=== PATIENT | female | born 1980 | race Caucasian/White ===

== ENCOUNTER 2016-10-22 18:55 | Emergency (ER) | payer BC ==
[2016-10-22 19:01] VITALS: BP 138/102; PULSE 81; RESP 20; TEMP 98.3; O2SAT 98
[2016-10-22 19:20] VITALS: BP 142/81; PULSE 79; RESP 18; O2SAT 98
[2016-10-22 19:30] VITALS: BP 138/78; PULSE 72; RESP 18; O2SAT 99
[2016-10-22 20:00] VITALS: BP 121/61; PULSE 70; RESP 18; O2SAT 96
[2016-10-22] MEDS ORDERED: PRIL20CA9 PO (20:03)
--- NOTE | 2016-10-22 20:04 | PD ---
HPI Chief Complaint: Chest Pain Time Seen by Provider: 19:57 Travel History International Travel<30 days: No Contact w/Intl Traveler<30days: No Traveled to known affect area: No History of Present Illness HPI The patient is a 36-year-old female that complains of a slight burning, crampy, indigestion pain beginning at 5:30 PM today the pain is now resolved. She did take a 150 mg ranitidine tablet when she first felt the pain. The patient states she has been belching a lot and sometimes the pain is relieved by belching. She has no history of heart disease but her mother had coronary artery bypasses 5. The patient is a smoker. The patient states she has a history of GERD, she was told this by her doctor. PFS Past Medical History Medical other: Yes (Indigestion) Tetanus Vaccination: < 5 Years Influenza Vaccination: No ?: Unknown LMP: Two weeks ago : 0 Past Surgical History Other Surgery: Yes ([place] teeth ) Social History Alcohol Use: Yes (Occasional) Tobacco Use: Yes (/ ppd) Substance Use: No Allergies-Medications (Allergen,Severity, Reaction): Coded Allergies: No Known Allergies (Unverified , 10/22/16) Review of Systems Except as stated in HPI: all other systems reviewed are Neg Physical Exam Narrative GENERAL: The patient is alert, oriented 3 in no apparent distress. She is obese. Her vital signs initially 1 138/102 and now are normal, the pressure is reduced to 138/74. SKIN: Focused skin assessment warm/dry. HEAD: Atraumatic. Normocephalic. EYES: Pupils equal and round. No scleral icterus. No injection or drainage. ENT: No nasal bleeding or discharge. Mucous membranes pink and moist. NECK: Trachea midline. No JVD. CARDIOVASCULAR: Regular rate and rhythm. No murmur appreciated. RESPIRATORY: No accessory muscle use. Clear to auscultation. Breath sounds equal bilaterally. GASTROINTESTINAL: Abdomen soft, with minimal discomfort over the midline epigastrium to direct palpation, nondistended. Hepatic and splenic margins not palpable. No guarding or rebound is present. The pain is completely reproduced by pressing on the midline epigastrium. MUSCULOSKELETAL: No obvious deformities. No clubbing. No cyanosis. No edema. NEUROLOGICAL: Awake and alert. No obvious cranial nerve deficits. Motor grossly within normal limits. Normal speech. PSYCHIATRIC: Appropriate mood and affect; insight and judgment normal. Data Data Last Documented VS Vital Signs Date Time Temp Pulse Resp B/P Pulse Ox O2 Delivery O2 Flow Rate FiO2 10/22/16 19:01 98.3 81 20 138/102 98 MDM Medical Decision Making Medical Screen Exam Complete: Yes Emergency Medical Condition: Yes Medical Record Reviewed: Yes Interpretation(s) The EKG is normal with normal sinus rhythm rate of 78. Differential Diagnosis GERD, ulcer pain, acute coronary syndromehighly unlikely, pancreatitishighly unlikely Narrative Course The patient appears to have GERD. The ranitidine she took at 5:30 PM tonight as well as the elevation of her head and avoidance of belching appears to have resolved this problem. Plan: The patient should continue to take her ranitidine and is given prescription for Prilosec and she should take liquid Maalox/Mylanta. She should continue to elevate her head of the bed and discontinue smoking. Diagnosis Primary Impression: GERD (gastroesophageal reflux disease) Additional Instructions: As we discussed, elevate the head of your bed, discontinue smoking, take the Prilosec one tablet daily and continue to take the ranitidine and take Maalox as well if you get a recurrence of this discomfort. Follow-up with your primary care physician next week. Med/Other Pt SpecificInfo: Prescription(s) given Scripts Omeprazole (Prilosec)20 Mg Cap20 Mg PO DAILY #30 CAP Ref 0 Prov:Keith Chahal MD 10/22/16 Disposition: 01 DISCHARGE HOME Condition: Stable Keith Chahal MD Oct 22, 2016 20:04
[2016-10-22 20:30] VITALS: BP 129/77; PULSE 64; RESP 18; O2SAT 97
--- NOTE | 2016-10-23 13:40 | EKG ---
Date Performed: 10/22/2016 Time Performed: 19:15:52 PTAGE: 36 years EKG: Sinus rhythm Normal ECG NO PREVIOUS TRACING DOCTOR: Cristian Boone Interpretating Date/Time 10/23/2016 13:34:06
== END 2016-10-22 21:04 | disposition home or self-care (01) ==
LOC: PHED 18:55
DX: K21.9 Gastro-esophageal reflux disease without esophagitis (principal); F17.210 Nicotine dependence, cigarettes, uncomplicated
CPT/HCPCS: 93005

== ENCOUNTER 2017-12-13 20:40 | Observation (INO) | payer BC, OTHER ==
[~2017-12-13 20:40] MED LIST: ACETAMINOPHEN 500 MG CPLT PO PRN; ACETAMINOPHEN/HYDROcodone 325 MG/7.5 MG TAB PO PRN; MEDR4PAK PO; MORPHINE SULFATE 4 MG/ML INJ IV PUSH PRN; NITROGLYCERIN 0.4 MG SL 25 TABS/BTL SL PRN; OMEP20TA93 PO; PAXI20TA26 PO; PRIL20CA9 PO; SODIUM CHLORIDE 0.9% FLUSH 10 ML FLUSH IV FLUSH PRN; VENTAER INH; ZITHTAB PO
[2017-12-13] MEDS ORDERED: FAMOTIDINE 20 MG TAB PO SCH (21:00)
[2017-12-13] MEDS: SODIUM CHLORIDE 0.9% FLUSH 10 ML FLUSH IV FLUSH SCH (21:00)
[2017-12-13 22:00] LABS: TROPONIN I LESS THAN 0.02 NG/ML (0.02-0.05)
--- NOTE | 2017-12-13 22:29 | HHI.HP ---
HPI Service [facility] Primary Care Physician Steve Avilez MD Admission Diagnosis Atypical chest pain, cardiomegaly . Diagnoses: (1) Cardiomegaly (2) Atypical chest pain (3) Anxiety Chief Complaint: jaw pain, shortness of breath, diaphoresis Travel History International Travel<30 Days: No Contact w/Intl Traveler <30 Da: No History of Present Illness Ms. Segura is a 37 y/o female with a history of severe anxiety, viral meningitis one year ago, and GERD who presented to the ER in [place] complaining of shortness of breath, diaphoresis, and bilateral jaw pain. She was transferred to [facility] for evaluation of cardiomegaly and atypical chest pain under the [facility] service. The patient is seen after transfer in the CDU. She became increasing anxious throughout my visit. She states that she was diagnosed with bronchitis one week ago and was placed on steroids and an albuterol inhaler for this. Since starting these medications, she's been experiencing "panic attacks" on a daily basis. However, today, she states that she felt like she was "having a heart attack" after she started to experience anxiety prior to a chiropractor appointment. She felt short of breath, cold across her chest, nauseated, diaphoretic, and had bilateral jaw pain. The symptoms resolved in [place] but she reported that symptoms were restarting during my visit. 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 Her mother is a hospice patient. She reports a chronic "pinched nerve" in the right scapular area with numbness of her bilateral arms and left upper thigh. Review of Systems Except as stated in HPI: all other systems reviewed are Neg Past Family Social History Past Medical History GERD Anxiety Meningitis one year ago . Past Surgical History Denies any history of surgeries . Reported Medications Reported Meds & Active Scripts Active Ventolin Hfa 18 GM Inh (Albuterol Sulfate) 90 Mcg/Act Aer 2 Puff INH Q4H PRN Reported Omeprazole 20 Mg Tab 20 Mg PO DAILY Paxil (Paroxetine HCl) 20 Mg Tablet 20 Mg PO DAILY . Allergies: Coded Allergies: No Known Allergies (Unverified Allergy, Unknown, 12/13/17) Family History Mother age 57; first CABG age 51; DM, seizures, sepsis - on hospice Grandmother with CAD/stents . 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 Physical Exam Physical Exam GENERAL: This is a morbidly obese female patient, in no apparent distress. SKIN: No rashes, ecchymoses or lesions. Cool and dry. HEAD: Atraumatic. Normocephalic. No temporal or scalp tenderness. EYES: No scleral icterus. No injection or drainage. ENT: Nose without bleeding, purulent drainage. Uvula midline. NECK: Trachea midline. No JVD. CARDIOVASCULAR: Regular rate and rhythm without murmurs, gallops, or rubs. RESPIRATORY: Clear to auscultation. Breath sounds equal bilaterally. No wheezes , rales, or rhonchi. GASTROINTESTINAL: Abdomen soft, non-tender, nondistended. No hepato-splenomegaly , or palpable masses. No guarding. MUSCULOSKELETAL: Extremities without clubbing, cyanosis, or edema. No calf tenderness. NEUROLOGICAL: Awake and alert. Motor and sensory grossly within normal limits. Normal speech. PSYCHIATRIC: patient increasingly anxious throughout visit. Laboratory Laboratory Tests Test 12/13/17 14:23 White Blood Count 8.0 TH/MM3 Red Blood Count 4.84 MIL/MM3 Hemoglobin 14.6 GM/DL Hematocrit 43.1 % Mean Corpuscular Volume 89.0 FL Mean Corpuscular Hemoglobin 30.2 PG Mean Corpuscular Hemoglobin Concent 33.9 % Red Cell Distribution Width 12.5 % Platelet Count 239 TH/MM3 Mean Platelet Volume 11.2 FL Immature Granulocyte % (Auto) 0.2 % Neutrophils (%) (Auto) 64.2 % Lymphocytes (%) (Auto) 27.8 % Monocytes (%) (Auto) 4.9 % Eosinophils (%) (Auto) 1.9 % Basophils (%) (Auto) 1.0 % Immature Granulocyte # (Auto) 0.0 TH/MM3 Neutrophils # (Auto) 5.2 TH/MM3 Lymphocytes # (Auto) 2.2 TH/MM3 Monocytes # (Auto) 0.4 TH/MM3 Eosinophils # (Auto) 0.2 TH/MM3 Basophils # (Auto) 0.1 TH/MM3 CBC Comment DIFF FINAL Differential Comment Prothrombin Time 9.4 SEC Prothromb Time International Ratio 0.9 RATIO Activated Partial Thromboplast Time 24.5 SEC D-Dimer Quantitative (PE/DVT) 0.40 MG/L FEU Blood Urea Nitrogen 13 MG/DL Creatinine 0.90 MG/DL Random Glucose 108 MG/DL Calcium Level 9.0 MG/DL Magnesium Level 2.0 MG/DL Sodium Level 141 MEQ/L Potassium Level 3.7 MEQ/L Chloride Level 107 MEQ/L Carbon Dioxide Level 26.0 MEQ/L Anion Gap 8 MEQ/L Estimat Glomerular Filtration Rate 70 ML/MIN Total Creatine Kinase 317 U/L Creatine Kinase MB 2.9 NG/ML Creatine Kinase MB % 0.9 % Troponin I LESS THAN 0.02 NG/ML Human Chorionic Gonadotropin, Quant LESS THAN 1 MIU/ML Laboratory Tests Test 12/13/17 21:15 Total Creatine Kinase 73 Troponin I LESS THAN 0.02 Imaging Last Impressions Chest X-Ray 12/13/17 1416 Signed Impressions: CONCLUSION: 1. Minimal increased perihilar interstitial infiltrates are noted suggesting m inimal central pulmonary vascular congestion or viral pneumonitis. Clinical cor relation is recommended. 2. Mild cardiomegaly. . Caprini VTE Risk Assessment Caprini VTE Risk Assessment: No/Low Risk (score <= 1) Caprini Risk Assessment Model Point Value = 1 Point Value = 2 Point Value = 3 Point Value = 5 Age 41-60 Minor surgery BMI > 25 kg/m2 Swollen legs Varicose veins or History of unexplained or recurrent spontaneous Oral contraceptives or hormone replacement Sepsis (< 1 month) Serious lung disease, including pneumonia (< 1 month) Abnormal pulmonary function Acute myocardial infarction Congestive heart failure (< 1 month) History of inflammatory bowel disease Medical patient at bed rest Age 61-74 Arthroscopic surgery Major open surgery (> 45 min) Laparoscopic surgery (> 45 min) Malignancy Confined to bed (> 72 hours) Immobilizing plaster cast Central venous access Age >= 75 History of VTE Family history of VTE Factor V Leiden Prothrombin [id number] Lupus anticoagulant Anticardiolipin antibodies Elevated serum homocysteine Heparin-induced thrombocytopenia Other congenital or acquired thrombophilia Stroke (< 1 month) Elective arthroplasty Hip, pelvis, or leg fracture Acute spinal cord injury (< 1 month) Prophylaxis Regimen Total Risk Factor Score Risk Level Prophylaxis Regimen 0-1 Low Early ambulation 2 Moderate Order ONE of the following: *Sequential Compression Device (SCD) *Heparin 5000 units SQ BID 3-4 Higher Order ONE of the following medications: *Heparin 5000 units SQ TID *Enoxaparin/Lovenox 40 mg SQ daily (WT < 150 kg, CrCl > 30 mL/min) *Enoxaparin/Lovenox 30 mg SQ daily (WT < 150 kg, CrCl > 10-29 mL/min) *Enoxaparin/Lovenox 30 mg SQ BID (WT < 150 kg, CrCl > 30 mL/min) AND/OR *Sequential Compression Device (SCD) 5 or more Highest Order ONE of the following medications: *Heparin 5000 units SQ TID (Preferred with Epidurals) *Enoxaparin/Lovenox 40 mg SQ daily (WT < 150 kg, CrCl > 30 mL/min) *Enoxaparin/Lovenox 30 mg SQ daily (WT < 150 kg, CrCl > 10-29 mL/min) *Enoxaparin/Lovenox 30 mg SQ BID (WT < 150 kg, CrCl > 30 mL/min) AND *Sequential Compression Device (SCD) Assessment and Plan Problem List: (1) Cardiomegaly ICD Code: I51.7 - Cardiomegaly (2) Atypical chest pain ICD Code: R07.89 - Other chest pain (3) Anxiety ICD Code: F41.9 - Anxiety disorder, unspecified Assessment and Plan Ms. Segura is a 37 y/o female with a history of viral meningitis one year ago, GERD, and anxiety who presented to the ER in [place] complaining of shortness of breath, diaphoresis, and bilateral jaw pain. She was transferred to [facility] main campus for evaluation of cardiomegaly and atypical chest pain under the [facility] service. Atypical chest pain - Serial EKGs and cardiac enzymes to r/o ACS - Nitroglycerin 0.4 mg sl q5min up to 3 doses for CP - Bryant/Morphine PRN for pain - consider stress testing pending outcome of initial testing Cardiomegaly - cardiomegaly on CXR (personally reviewed) - lung sounds clear on exam; no signs of fluid overload - will check echocardiogram to evaluate cardiac structure and function Anxiety - continue home Paxil - will give low dose Xanax tonight to try to reduce patient's anxiety and allow for restorative sleep Right scapular pain with bilateral arm numbness and left upper outer thigh numbness - no neuro deficits on exam - discussed obtaining an spinal MRI but patient refusing at this time - symptoms present over the past 3 months and this can likely be followed up as an outpatient - will continue to monitor DVT prophylaxis - early ambulation Discussed Condition With RN and Dr. David . Katie Florian Dec 13, 2017 22:29
[2017-12-13] MEDS ORDERED: ALPRAZolam 0.25 MG TAB PO ONE (22:30)
[2017-12-14] VITALS (7 sets, daily range): BP systolic 123–128; BP diastolic 64–96; PULSE 71–83; RESP 16–18; TEMP 97.6–98.4; O2SAT 95–98
[2017-12-14 02:39] LABS: TROPONIN I LESS THAN 0.02 NG/ML (0.02-0.05)
--- NOTE | 2017-12-14 08:40 | HHI.PR ---
Subjective Remarks Follow-up for multiple vague complaints of atypical chest pain, diaphoresis, anxiety, nausea. The patient admits that she has been very stressed out recently and her anxiety "got really bad" yesterday. 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 Today she states she does feel a lot better. She denies any specific chest pains, however does report some epigastric fullness and feels "gassy". She states she keeps burping a lot. Denies any nausea or vomiting today. Denies any shortness of breath. Patient states she is a hypochondriac, and yesterday she started researching her symptoms which made her anxiety worse. She has no other medical complaints to report at this time. Objective Vitals Vital Signs Date Time Temp Pulse Resp B/P (MAP) Pulse Ox O2 Delivery O2 Flow Rate FiO2 12/14/17 08:07 98.0 71 18 123/64 (83) 95 12/14/17 04:41 97.6 72 16 127/96 (106) 98 12/14/17 00:22 98.4 72 17 128/83 (98) 96 12/13/17 23:18 21 I/O 12/13/17 12/13/17 12/13/17 12/14/17 12/14/17 12/14/17 07:00 15:00 23:00 07:00 15:00 23:00 Intake Total 300 ml 200 ml Balance 300 ml 200 ml Intake Oral 300 ml 200 ml Imaging Last Impressions Gall Bladder Ultrasound 12/14/17 0000 Signed Impressions: CONCLUSION: 1. Gallbladder sludge and cholelithiasis. 2. Abnormal hepatic echotexture characteristic of steatosis or diffuse hepatoc ellular disease. 3. No evidence of acute process. Objective Remarks GENERAL: Well-nourished, well-developed pleasant obese female patient in NAD. SKIN: Warm and dry. No rash. HEENT: Normocephalic. Atraumatic. Pupils equal and round. Mucous membranes pink and moist. NECK: Supple. Trachea midline. CARDIOVASCULAR: Regular rate and rhythm. No murmur appreciated. RESPIRATORY: No accessory muscle use. Clear to auscultation. Breath sounds equal bilaterally. GASTROINTESTINAL: Abdomen soft, non-tender, nondistended. Normoactive bowel sounds x4. MUSCULOSKELETAL: No obvious deformities. Extremities without clubbing, cyanosis , or edema. NEUROLOGICAL: Awake and alert. No obvious cranial nerve deficits. Motor grossly within normal limits. Moving all extremities spontaneously. Normal speech. PSYCHIATRIC: Appropriate mood and affect; insight and judgment normal. Medications and IVs Current Medications Medications (Trade) Dose Ordered Sig/George Route Start Time Stop Time Status Last Admin (NS Flush) 2 ml BID IV FLUSH 12/13/17 21:00 12/14/17 09:17 (NS Flush) 2 ml UNSCH PRN IV FLUSH 12/13/17 19:45 (Aspirin) 325 mg DAILY PO 12/14/17 09:00 12/14/17 09:16 (Nitrostat Sl) 0.4 mg Q5M PRN SL 12/13/17 19:45 (Tylenol) 500 mg Q4H PRN PO 12/13/17 19:45 ([place] 7.5-325 Mg) 1 tab Q4H PRN PO 12/13/17 19:45 (Morphine Inj) 2 mg Q3H PRN IV PUSH 12/13/17 19:45 (Paxil) 20 mg DAILY PO 12/14/17 09:00 12/14/17 09:16 (Protonix) 40 mg DAILY PO 12/14/17 09:00 12/14/17 09:17 A/P Problem List: (1) Cardiomegaly ICD Code: I51.7 - Cardiomegaly (2) Atypical chest pain ICD Code: R07.89 - Other chest pain (3) Anxiety ICD Code: F41.9 - Anxiety disorder, unspecified Assessment and Plan 37 y/o female with a history of viral meningitis 1 year ago, GERD, and anxiety who presented to the ER in [place] complaining of shortness of breath, diaphoresis, and bilateral jaw pain. She was transferred to [facility] main campus for evaluation of cardiomegaly and atypical chest pain. Atypical chest pain: Strongly suspect symptoms secondary to anxiety attack vs GI related, however rule out ACS. Patient with history of tobacco use, and has family history of heart disease in their 50s-60s. -ACS ruled out with negative serial cardiac enzymes 3 -EKG reviewed, shows nonspecific T-wave inversions in V1-3, otherwise no acute ST elevation/depression -Continue aspirin, nitro prn, morphine prn -Walking treadmill test unremarkable with no ischemia -Symptoms resolved with resolution of anxiety attack -Also possibly GI related, check GB U/S and started on PPI -1400hrs: GB U/S with cholelithiasis and sludge; LFTs wnl; patient informed of results, will f/up as outpatient with general surgery if symptoms return; also instructed to return to ED if symptoms persist/worsen Cardiomegaly -cardiomegaly seen on CXR (personally reviewed) -BNP < 2 -lung sounds clear on exam; no signs of fluid overload -echocardiogram reviewed, shows grade 1 diastolic dysfunction but otherwise unremarkable; discussed results with the patient Anxiety: with acute anxiety attack -continue home Paxil -given small dose of xanax with improvement of symptoms -outpatient follow up with PCP/psychiatry Right scapular pain: with bilateral arm numbness and left upper outer thigh numbness -no neuro deficits on exam -recommended outpatient MRI and follow up with orthopedics; patient already follows with chiropractor for adjustments -symptoms improved, at baseline Hyperlipidemia: LDL 117 -discussed results with the patient, she would like to trial diet/exercise prior to starting on statin -repeat lipid panel as outpatient in 3 months DVT prophylaxis- early ambulation Discharge Planning Discharge patient to home Condition on discharge: Improved Heart Healthy Diet as tolerated Ad Beth activity Rx written: protonix 40mg daily Follow-up with primary care physician at [facility] Repeat Lipid Panel in 3months Homa Morris PA-C Dec 14, 2017 8:40 am
[2017-12-14] MEDS ORDERED: RESP: ALBUTEROL 1.25 MG/3 ML NEB (SCH) NEB ONE (08:45)
[2017-12-14 08:47] LABS: CHOLESTEROL/ HDL RATIO 5.07 RATIO; HDL CHOLESTEROL 34.3 MG/DL (40.0-60.0)
[2017-12-14] MEDS ORDERED: PANTOPRAZOLE SOD 40 MG DELAYED RELEASE TAB PO SCH (09:00)
[2017-12-14] MEDS ORDERED: PANTOPRAZOLE SOD 20 MG DELAYED RELEASE TAB PO SCH (09:00)
[2017-12-14] MEDS ORDERED: PARoxetine HCL 20 MG TAB PO SCH (09:00)
[2017-12-14] MEDS ORDERED: ASPIRIN 325 MG TAB PO SCH (09:00)
[2017-12-14] MEDS: SODIUM CHLORIDE 0.9% FLUSH 10 ML FLUSH IV FLUSH SCH (09:17)
[2017-12-14 09:19] LABS: ALBUMIN 3.5 GM/DL (3.4-5.0); DIRECT BILIRUBIN ADULT 0.1 MG/DL (0.0-0.2)
[2017-12-14 09:20] LABS: INDIRECT BILIRUBIN 0.5 MG/DL (0.0-0.8); TOTAL BILIRUBIN ADULT 0.6 MG/DL (0.2-1.0); TOTAL PROTEIN 6.6 GM/DL (6.4-8.2)
--- NOTE | 2017-12-14 11:50 | RADRPT ---
EXAM DATE: 12/14/2017 9:26 AM EDT AGE/SEX: 37 years / Female INDICATIONS: Right upper quadrant pain. CLINICAL DATA: This is the patient's initial encounter. Patient reports that signs and/or symptoms h ave been present for 1 day and indicates a pain score of 2/10. MEDICAL/SURGICAL HISTORY: Hypertension. Gastroesophageal reflux disease. Cardiomegaly. Bronchitis. Anxiety. Psoriasis. None. COMPARISON: No prior exams available for comparison. MEASUREMENTS (cm x cm x cm): Liver:__ 15.6 cm length Common Bile Duct:__ 4mm FINDINGS: Liver: Increased echotexture without focal lesion or ductal dilation. Portal Vein: Hepatopedal flow seen in portal vein. Common Duct: No intraluminal mass or stone visualized. Gallbladder: Small noncalcified stones and sludge are identified in the gallbladder. There is no sabrina dence of wall thickening or pericholecystic fluid. Pancreas: The visualized portions are within normal limits Right Kidney: No mass or hydronephrosis Other: None. CONCLUSION: 1. Gallbladder sludge and cholelithiasis. 2. Abnormal hepatic echotexture characteristic of steatosis or diffuse hepatocellular disease. 3. No evidence of acute process. Electronically signed by: Mark Anthony Raya MD 12/14/2017 11:49 AM EDT
--- NOTE | 2017-12-14 12:19 | TR ---
Date Performed: 12/14/2017 Time Performed: 10:14:44 DOCTOR: Anaid House DRUG LIST: CLINICAL HISTORY: REASON FOR TEST: REASON FOR ENDING: OBSERVATION: CONCLUSION: DONNA PROTOCOL. THE CHEST DISCONFORT DID NOT WORSEN. TEST STOPPED AFTER EXCEEDING GO AL HR SECONDARY TO SOB AND LEG FATIGUE.Maximum MF=002 % Max HR Achieved=89.0% Maximum RK=114/80 Total Exercise Time=6:00 COMMENTS: No ischemia
[2017-12-14] MEDS ORDERED: PANT40TA3 PO (13:51)
--- NOTE | 2017-12-14 15:42 | ECHRPT ---
Indication: HEART FAILURE CONCLUSIONS The left ventricular systolic function is normal with an estimated ejection fraction in the range of 55-60%. Probable impaired left ventricular relaxtion (grade 1 diastolic dysfunction). There is trace tricuspid valve regurgitation. BP: / HR: Rhythm: MEASUREMENTS (Male / Female) Normal Values Technical Quality: 2D ECHO LV Diastolic Diameter PLAX 4.9 cm 4.2 - 5.9 / 3.9 - 5.3 cm LV Systolic Diameter PLAX 3.4 cm IVS Diastolic Thickness 1.0 cm 0.6 - 1.0 / 0.6 - 0.9 cm LVPW Diastolic Thickness 0.8 cm 0.6 - 1.0 / 0.6 - 0.9 cm LV Relative Wall Thickness 0.4 RV Internal Dim ED PLAX 2.1 cm DOPPLER Mitral E Point Velocity 52.1 cm/s Mitral A Point Velocity 79.5 cm/s Mitral E to A Ratio 0.7 TR Peak Velocity 167.0 cm/s TR Peak Gradient 11.2 mmHg Right Atrial Pressure 5.0 mmHg Pulmonary Artery Systolic Pressu 16.2 mmHg Right Ventricular Systolic Press 16.2 mmHg FINDINGS LEFT VENTRICLE Normal left ventricular size. Wall thickness is normal. The left ventricular systolic function is normal with an estimated ejection fraction in the range of 55-60%. Probable impaired left ventricular relaxtion (grade 1 diastolic dysfunction). RIGHT VENTRICLE Normal right ventricular size and systolic function. LEFT ATRIUM The left atrial size is normal. RIGHT ATRIUM The right atrial size is normal. ATRIAL SEPTUM Normal atrial septal thickness AORTA The aortic root and proximal ascending aorta are normal in size on limited imaging. MITRAL VALVE Structurally normal mitral valve. No mitral valve stenosis or regurgitation. AORTIC VALVE Probable trileaflet aortic valve. No aortic valve stenosis or regurgitation. TRICUSPID VALVE Structurally normal tricuspid valve. No tricuspid valve stenosis. There is trace tricuspid valve regurgitation. PULMONARY VALVE No pulmonary valve regurgitation or stenosis. VESSELS The inferior vena cava is normal in size. PERICARDIUM No pericardial effusion. Loc Gonzalez DO (Electronically Signed) Final Date:14 December 2017 15:41
--- NOTE | 2017-12-14 18:24 | EKG ---
Date Performed: 12/13/2017 Time Performed: 21:15:27 PTAGE: 37 years EKG: Sinus rhythm NORMAL ECG PREVIOUS TRACING : 12/13/17 @ 14.19 Since the previous tracing, no significant change noted DOCTOR: Anaid House Interpretating Date/Time 12/14/2017 18:23:29
--- NOTE | 2017-12-14 18:24 | EKG ---
Date Performed: 12/14/2017 Time Performed: 01:50:18 PTAGE: 37 years EKG: Sinus rhythm NORMAL ECG PREVIOUS TRACING : 12/13/2017 21.15 Since the previous tracing, no significant change noted DOCTOR: Anaid House Interpretating Date/Time 12/14/2017 18:23:44
== END 2017-12-14 17:35 | disposition home or self-care (01) ==
LOC: NEDDLT 20:40 → NEPHCDU 20:50
PROVIDERS: ADMIT Internal Medicine; ATTEND Internal Medicine
DX: R07.89 Other chest pain (principal); I51.7 Cardiomegaly; F41.1 Generalized anxiety disorder; F41.0 Panic disorder [episodic paroxysmal anxiety]; E78.5 Hyperlipidemia, unspecified; F45.21 Hypochondriasis; G58.9 Mononeuropathy, unspecified; K21.9 Gastro-esophageal reflux disease without esophagitis; K80.20 Calculus of gallbladder without cholecystitis without obstruction; F17.210 Nicotine dependence, cigarettes, uncomplicated; Z79.899 Other long term (current) drug therapy; Z86.61 Personal history of infections of the central nervous system; Z87.09 Personal history of other diseases of the respiratory system; Z83.3 Family history of diabetes mellitus; Z82.49 Family history of ischemic heart disease and other diseases of the circulatory system
CPT/HCPCS: 71046; 76705; 80048; 80061; 80076; 82550; 82552; 83735; 83880; 84484; 84702; 85025; 85379; 85610; 85730; 93005; 93017; 93306; 94664; 99285; G0378; J7613